=== PATIENT | male | born 1950 | race Caucasian/White ===

== ENCOUNTER 2017-08-31 01:36 | Emergency (ER) | payer OTHER ==
[~2017-08-31] VITALS: Ht 170.2 cm; Wt 79.4 kg
[~2017-08-31 01:36] MED LIST: ALBU18 IN; AMLO5TAB2 PO; ASPI-266 PO; ATO40T PO; CLOP75TA28 PO; HYDR12.56 PO; MISC450C PO; MULTCAP45 PO
[2017-08-31 02:25] LABS: Basophils # (auto) 0 uL; Eosinophils # (auto) 0.1 uL; Hemoglobin 14.4 g/dL (13.5-17.5); Lymphocytes # (auto) 1.4 uL; Monocytes # (auto) 0.3 uL; Neutrophils # (auto) 3.3 uL; Nucleated Red Blood Cells % 0.1 %; Red Cell Distribution Width 14.1 % (11.8-14.3); White Blood Cell 5.1 10^3/uL (4.4-10.8)
[2017-08-31 02:27] LABS: Basophils % (auto) 0.8 % (0.0-2.0); Eosinophils % (auto) 2.2 % (0.0-7.0); Hematocrit 41.7 % (41.0-53.0); Lymphocytes % (auto) 27.6 % (10.0-50.0); Mean Corpuscular Hemoglobin 34.9 pg (28.0-32.0); Mean Corpuscular Hgb Conc. 34.6 g/dL (32.0-36.0); Mean Platelet Volume 6.8 fL (6.9-10.8); Monocytes % (auto) 5.6 % (0.0-12.0); Neutrophils % (auto) 63.8 % (37.0-80.0); Platelet Count (auto) 156 10^3/uL (140-450)
[2017-08-31 02:43] LABS: Albumin 3.8 g/dL (3.4-5.0); Anion Gap 10 (5-15); Aspartate Aminotransferase 58 U/L (15-37); BUN/Creatinine Ratio 9.9; Blood Urea Nitrogen 7 mg/dL (7-18); Calcium 7.8 mg/dL (8.5-10.1); Carbon Dioxide 24 mmol/L (21-32); Chloride 110 mmol/L (98-107); GFR African American 143 mL/min; GFR Non-African American 118 mL/min; Glucose 91 mg/dL (74-106); Magnesium 2.3 mg/dL (1.6-2.6); Potassium 3.7 mmol/L (3.5-5.1); Sodium 144 mmol/L (136-145)
[2017-08-31 02:52] LABS: Alkaline Phosphatase 70 U/L (45-117); Bilirubin, Total 0.2 mg/dL (0.2-1.0); Total Protein 7.9 g/dL (6.4-8.2)
[2017-08-31] MEDS ORDERED: SODIUM CHLORIDE 0.9% 1,000 ML IV ONE ×2 (07:18)
[2017-08-31] MEDS ORDERED: ASPirin 325 MG TAB PO ONE (07:30)
[2017-08-31] MEDS ORDERED: NITROGLYCERIN 0.4 MG SL TAB SL ONE (07:30)
[2017-08-31] MEDS ORDERED: THIAMINE HCL 100 MG/ML 2ML VIAL IV ONE (07:45)
[2017-08-31] MEDS ORDERED: chlorproMAZINE HCL 25 MG TAB PO ONE (09:15)
[2017-08-31 12:04] VITALS: BP 183/109
[2017-08-31] MEDS ORDERED: cloNIDine HCL 0.1 MG TAB PO ONE (12:15)
== END 2017-08-31 12:32 | disposition home or self-care (01) ==
LOC: EDBD 01:36 → ER 01:39
DX: R07.89 Other chest pain (principal); F10.10 Alcohol abuse, uncomplicated; I48.91 Unspecified atrial fibrillation; J44.9 Chronic obstructive pulmonary disease, unspecified; E78.5 Hyperlipidemia, unspecified; I10 Essential (primary) hypertension; I25.10 Atherosclerotic heart disease of native coronary artery without angina pectoris; I25.2 Old myocardial infarction; Z95.1 Presence of aortocoronary bypass graft; Z79.82 Long term (current) use of aspirin
CPT/HCPCS: 36415; 71010; 80053; 80320; 83735; 84484; 85025; 93005; 96361; 96374; 99285; J3411; J7030; Q0161

== ENCOUNTER 2018-06-18 23:43 | Emergency (ER) | payer OTHER ==
[~2018-06-18] VITALS: Ht 175.3 cm; Wt 84.8 kg
[2018-06-19 01:14] LABS: Basophils # (auto) 0 uL; Basophils % (auto) 0.8 % (0.0-2.0); Eosinophils # (auto) 0.3 uL; Eosinophils % (auto) 6.4 % (0.0-7.0); Hematocrit 41.7 % (41.0-53.0); Hemoglobin 14.2 g/dL (13.5-17.5); Lymphocytes # (auto) 1.7 uL; Lymphocytes % (auto) 31.2 % (10.0-50.0); Mean Corpuscular Hgb Conc. 33.9 g/dL (32.0-36.0); Mean Corpuscular Volume 100.3 fL (80.0-100.0); Monocytes # (auto) 0.5 uL; Monocytes % (auto) 9.8 % (0.0-12.0); Neutrophils # (auto) 2.8 uL; Neutrophils % (auto) 51.8 % (37.0-80.0); Platelet Count (auto) 228 10^3/uL (140-450); Red Blood Cells 4.16 10^6/uL (4.5-5.90); Red Cell Distribution Width 13.9 % (11.8-14.3); White Blood Cell 5.4 10^3/uL (4.4-10.8)
[2018-06-19 01:32] LABS: Alanine Aminotransferase 63 U/L (16-61); Albumin 3.5 g/dL (3.4-5.0); Anion Gap 15 (5-15); Aspartate Aminotransferase 63 U/L (15-37); BUN/Creatinine Ratio 10.9; Blood Urea Nitrogen 14 mg/dL (7-18); Calcium 8.8 mg/dL (8.5-10.1); Carbon Dioxide 20 mmol/L (21-32); Chloride 107 mmol/L (98-107); GFR African American 72 mL/min; GFR Non-African American 60 mL/min; Glucose 119 mg/dL (74-106); Magnesium 2.1 mg/dL (1.6-2.6); Potassium 3.7 mmol/L (3.5-5.1); Sodium 142 mmol/L (136-145)
[2018-06-19 01:35] LABS: Alkaline Phosphatase 109 U/L (45-117); Bilirubin, Total 0.3 mg/dL (0.2-1.0); Total Protein 7.3 g/dL (6.4-8.2)
[2018-06-19 01:53] LABS: INR 0.9 (0.9-1.15); Partial Thromboplastin Time 27.5 sec (23.78-33.04); Prothrombin Time 9.7 sec (9.27-12.13)
[2018-06-19 10:28] VITALS: BP 148/73
[2018-06-19] MEDS ORDERED: ACETAMINOPHEN 325 MG TAB PO ONE (10:30)
== END 2018-06-19 10:10 | disposition home or self-care (01) ==
LOC: ER 23:47
DX: R07.89 Other chest pain (principal); L03.811 Cellulitis of head [any part, except face]; I48.91 Unspecified atrial fibrillation; J44.9 Chronic obstructive pulmonary disease, unspecified; E78.5 Hyperlipidemia, unspecified; I25.810 Atherosclerosis of coronary artery bypass graft(s) without angina pectoris; I10 Essential (primary) hypertension; I25.2 Old myocardial infarction; Z95.1 Presence of aortocoronary bypass graft; Z88.5 Allergy status to narcotic agent; Z87.891 Personal history of nicotine dependence
CPT/HCPCS: 36415; 70450; 71046; 80053; 83735; 83880; 84484; 85025; 85610; 85730; 93005

== ENCOUNTER 2018-10-10 18:48 | Emergency (ER) | payer OTHER ==
[~2018-10-10] VITALS: Ht 175.3 cm; Wt 83.9 kg
[2018-10-10 19:28] LABS: Basophils # (auto) 0 uL; Basophils % (auto) 0.7 % (0.0-2.0); Eosinophils # (auto) 0.1 uL; Eosinophils % (auto) 2.5 % (0.0-7.0); Hematocrit 41.5 % (41.0-53.0); Hemoglobin 14.3 g/dL (13.5-17.5); Lymphocytes # (auto) 1.3 uL; Lymphocytes % (auto) 23.3 % (10.0-50.0); Mean Corpuscular Hemoglobin 34.4 pg (28.0-32.0); Mean Corpuscular Hgb Conc. 34.6 g/dL (32.0-36.0); Mean Corpuscular Volume 99.5 fL (80.0-100.0); Monocytes # (auto) 0.4 uL; Monocytes % (auto) 6.4 % (0.0-12.0); Neutrophils # (auto) 3.8 uL; Neutrophils % (auto) 67.1 % (37.0-80.0); Platelet Count (auto) 224 10^3/uL (140-450); Red Blood Cells 4.17 10^6/uL (4.5-5.90); Red Cell Distribution Width 13.1 % (11.8-14.3); White Blood Cell 5.7 10^3/uL (4.4-10.8)
[2018-10-10 19:51] LABS: Alanine Aminotransferase 29 U/L (16-61); Albumin 3.1 g/dL (3.4-5.0); Anion Gap 10 (5-15); Blood Urea Nitrogen 21 mg/dL (7-18); Calcium 7.7 mg/dL (8.5-10.1); Carbon Dioxide 23 mmol/L (21-32); Chloride 103 mmol/L (98-107); Glucose 110 mg/dL (74-106); Sodium 136 mmol/L (136-145)
[2018-10-10 19:56] LABS: Alkaline Phosphatase 96 U/L (45-117); Aspartate Aminotransferase 20 U/L (15-37); BUN/Creatinine Ratio 18.9; Bilirubin, Total 0.5 mg/dL (0.2-1.0); GFR African American > 60 mL/min; GFR Non-African American > 60 mL/min; Total Protein 6.7 g/dL (6.4-8.2)
[2018-10-10 20:00] LABS: Potassium 2.6 mmol/L (3.5-5.1)
[2018-10-10] MEDS ORDERED: POTASSIUM CHL 20MEQ/100ML 100 ML IV ONE (20:15)
[2018-10-10] MEDS ORDERED: POTASSIUM CHL 20 Meq TABLET PO ONE (20:15)
[2018-10-10 20:22] LABS: Urine Bacteria NONE SEEN /hpf (None Seen); Urine Blood Negative /uL (Negative); Urine Hyaline Cast FEW /lpf (0 - 2); Urine Specific Gravity 1.013 (1.001-1.035); Urine WBC 1 /hpf (0 - 3)
[2018-10-10 20:35] LABS: INR 0.99 (0.9-1.15); Partial Thromboplastin Time 31.4 sec (23.78-33.04); Prothrombin Time 10.6 sec (9.27-12.13)
[2018-10-10] MEDS ORDERED: HYDROmorphone HCL 2 MG/ML VL IV ONE (21:00)
[2018-10-10] MEDS ORDERED: ONDANSETRON HCL 4 MG/2 ML VIAL IV ONE (21:00)
[2018-10-10] MEDS ORDERED: cefTRIAXone 1GM/50ML D5W 50 ML IV ONE (23:30)
[2018-10-11] MEDS ORDERED: VANCOMYCIN 1GM/250ML 250 ML IV ONE (02:00)
[2018-10-11] MEDS ORDERED: HYDROcodone-ACET 10/325MG TAB PO ONE (02:00)
[2018-10-11 05:24] VITALS: BP 126/79
== END 2018-10-11 05:50 | disposition home or self-care (01) ==
LOC: EDUNIT# 18:48 → ER 18:48 → EDBD 18:48 → ER 10-11 05:50
DX: R07.9 Chest pain, unspecified (principal); L03.211 Cellulitis of face; E87.6 Hypokalemia; R73.9 Hyperglycemia, unspecified; I48.91 Unspecified atrial fibrillation; J44.9 Chronic obstructive pulmonary disease, unspecified; E78.5 Hyperlipidemia, unspecified; I10 Essential (primary) hypertension; I25.2 Old myocardial infarction; Z95.1 Presence of aortocoronary bypass graft; Z87.891 Personal history of nicotine dependence; Z98.61 Coronary angioplasty status; Z88.6 Allergy status to analgesic agent
CPT/HCPCS: 36415; 70486; 71045; 80053; 81001; 83880; 84443; 84484; 85025; 85610; 85730; 94761; 96365; 96366; 96367; 96375; 99284; J0696; J1170; J2405; J3370; J3480; J7030

== ENCOUNTER 2019-03-28 16:06 | Emergency (ER) | payer OTHER ==
[~2019-03-28] VITALS: Ht 170.2 cm; Wt 81.6 kg
[2019-03-28] MEDS ORDERED: SODIUM CHLORIDE 0.9% 1,000 ML IV ONE (16:45)
[2019-03-28 18:38] LABS: Basophils # (auto) 0 uL; Basophils % (auto) 0.5 % (0.0-2.0); Eosinophils # (auto) 0.2 uL; Eosinophils % (auto) 3.6 % (0.0-7.0); Hematocrit 42.9 % (41.0-53.0); Hemoglobin 14.2 g/dL (13.5-17.5); Lymphocytes # (auto) 1.8 uL; Lymphocytes % (auto) 39.5 % (10.0-50.0); Mean Corpuscular Hemoglobin 33.3 pg (28.0-32.0); Mean Corpuscular Hgb Conc. 33.1 g/dL (32.0-36.0); Mean Corpuscular Volume 100.4 fL (80.0-100.0); Monocytes # (auto) 0.4 uL; Neutrophils # (auto) 2.2 uL; Neutrophils % (auto) 48.4 % (37.0-80.0); Platelet Count (auto) 175 10^3/uL (140-450); Red Blood Cells 4.27 10^6/uL (4.5-5.90); Red Cell Distribution Width 13.8 % (11.8-14.3); White Blood Cell 4.4 10^3/uL (4.4-10.8)
[2019-03-28 18:48] LABS: Albumin 3.2 g/dL (3.4-5.0); Calcium 7.8 mg/dL (8.5-10.1); Potassium 4.1 mmol/L (3.5-5.1)
[2019-03-28 18:52] LABS: BUN/Creatinine Ratio 16.5; Bilirubin, Total 0.2 mg/dL (0.2-1.0); Total Protein 6.4 g/dL (6.4-8.2)
[2019-03-28 20:05] VITALS: BP 121/72
[2019-03-28 22:24] LABS: Urine Bacteria NONE SEEN /hpf (None Seen); Urine Blood Negative /uL (Negative); Urine Specific Gravity 1.004 (1.001-1.035); Urine WBC <1 /hpf (0 - 3)
[2019-03-31] MEDS ORDERED: TAMS0.4C36 PO (18:18)
[2019-03-31] MEDS ORDERED: AMLO5TAB13 PO (18:18)
[2019-03-31] MEDS ORDERED: ATOR40TA52 PO (18:18)
[2019-03-31] MEDS ORDERED: CALC0.5C PO (18:18)
[2019-03-31] MEDS ORDERED: HCTZ25T PO (18:18)
[2019-03-31] MEDS ORDERED: METO-169 PO (18:18)
[2019-03-31] MEDS ORDERED: DIPH-506 OR (18:18)
[2019-03-31] MEDS ORDERED: AMIO200T33 PO (18:18)
[2019-03-31] MEDS ORDERED: CLOP75TA28 PO (18:18)
[2019-03-31] MEDS ORDERED: OMEP20TA PO (18:18)
== END 2019-03-28 20:26 | disposition home or self-care (01) ==
LOC: EDBD 16:06 → ER 16:06
DX: F10.229 Alcohol dependence with intoxication, unspecified (principal); I48.91 Unspecified atrial fibrillation; J44.9 Chronic obstructive pulmonary disease, unspecified; E78.5 Hyperlipidemia, unspecified; I10 Essential (primary) hypertension; I25.2 Old myocardial infarction; F12.90 Cannabis use, unspecified, uncomplicated; Z88.5 Allergy status to narcotic agent; Z95.1 Presence of aortocoronary bypass graft; Z98.61 Coronary angioplasty status; Z87.891 Personal history of nicotine dependence
CPT/HCPCS: 36415; 80053; 80320; 81001; 85025; 93005; 96360; 99284; J7030

== ENCOUNTER 2019-05-07 15:57 | Emergency (ER) | payer OTHER ==
[~2019-05-07] VITALS: Ht 172.7 cm; Wt 81.6 kg
[~2019-05-07 15:57] MED LIST changes: -ALBU18 IN; +AMIO200T33 PO; -AMLO5TAB2 PO; +APIX5TAB OR; -ATO40T PO; +ATOR40TA52 PO; +CALC0.5C PO; +CAR3125T OR; +FOLI1TAB6 PO; -HYDR12.56 PO; -MISC450C PO; -MULTCAP45 PO; +OMEP20TA PO; +TAMS0.4C36 PO; +THIA100T10 PO
[2019-05-07 16:39] LABS: Basophils # (auto) 0.1 uL; Basophils % (auto) 0.8 % (0.0-2.0); Eosinophils # (auto) 0 uL; Eosinophils % (auto) 0.1 % (0.0-7.0); Hematocrit 45.5 % (41.0-53.0); Hemoglobin 15.8 g/dL (13.5-17.5); Lymphocytes # (auto) 0.7 uL; Lymphocytes % (auto) 10.1 % (10.0-50.0); Mean Corpuscular Hemoglobin 33.8 pg (28.0-32.0); Mean Corpuscular Hgb Conc. 34.7 g/dL (32.0-36.0); Mean Corpuscular Volume 97.4 fL (80.0-100.0); Monocytes # (auto) 0.4 uL; Neutrophils # (auto) 5.8 uL; Nucleated Red Blood Cells % 0.1 %; Platelet Count (auto) 185 10^3/uL (140-450); Red Blood Cells 4.67 10^6/uL (4.5-5.90); Red Cell Distribution Width 13.8 % (11.8-14.3)
[2019-05-07] MEDS ORDERED: SODIUM CHLORIDE 0.9% 1,000 ML IV ONE (16:39)
[2019-05-07] MEDS ORDERED: LORazepam 2MG/ML-1ML VIAL IV ONE (16:45)
[2019-05-07 17:11] LABS: Alanine Aminotransferase 59 U/L (16-61); Albumin 4.4 g/dL (3.4-5.0); Anion Gap 17 (5-15); Aspartate Aminotransferase 65 U/L (15-37); BUN/Creatinine Ratio 8.6; Blood Urea Nitrogen 8 mg/dL (7-18); Calcium 8.8 mg/dL (8.5-10.1); Carbon Dioxide 21 mmol/L (21-32); Chloride 102 mmol/L (98-107); GFR African American 104 mL/min; GFR Non-African American 86 mL/min; Glucose 142 mg/dL (74-106); Magnesium 1.7 mg/dL (1.6-2.6); Potassium 3.6 mmol/L (3.5-5.1); Sodium 140 mmol/L (136-145)
[2019-05-07 17:21] LABS: Alkaline Phosphatase 87 U/L (45-117); Total Protein 8.6 g/dL (6.4-8.2)
[2019-05-07 18:25] LABS: Alcohol, Urine < 3.0 mg/dL (0-5); Amphetamine Screen, Urine NEGATIVE (NEGATIVE); Barbiturate Scree,Urine NEGATIVE (NEGATIVE); Benzodiazephine Screen, Urine NEGATIVE (NEGATIVE); Cannabinoid Screen, Urine POSITIVE (NEGATIVE); Cocaine Screen, Urine NEGATIVE (NEGATIVE); Opiate Scree,Urine NEGATIVE (NEGATIVE); Phencyclidine Screen, Urine NEGATIVE (NEGATIVE)
[2019-05-07] MEDS ORDERED: ASPirin 81 mg TAB PO ONE (19:15)
[2019-05-07] MEDS ORDERED: CLOPIDOGREL BISULFATE 75 MG TAB PO ONE (19:15)
[2019-05-07 20:00] VITALS: BP 160/84
== END 2019-05-07 20:40 | disposition home or self-care (01) ==
LOC: ER 16:01
DX: R07.9 Chest pain, unspecified (principal); R11.2 Nausea with vomiting, unspecified; I48.91 Unspecified atrial fibrillation; J44.9 Chronic obstructive pulmonary disease, unspecified; I25.810 Atherosclerosis of coronary artery bypass graft(s) without angina pectoris; E78.5 Hyperlipidemia, unspecified; I10 Essential (primary) hypertension; I25.2 Old myocardial infarction; F31.9 Bipolar disorder, unspecified; Z98.61 Coronary angioplasty status; F10.20 Alcohol dependence, uncomplicated; Y90.0 Blood alcohol level of less than 20 mg/100 ml; F12.10 Cannabis abuse, uncomplicated; Z79.899 Other long term (current) drug therapy; Z79.82 Long term (current) use of aspirin; Z88.5 Allergy status to narcotic agent
CPT/HCPCS: 36415; 71045; 80053; 80307; 80320; 83735; 83880; 84484; 85025; 93005; 94761; 96361; 96374; 99284; J2060; J7030

== ENCOUNTER 2019-05-22 09:26 | Emergency (ER) | payer OTHER ==
[~2019-05-22] VITALS: Ht 170.2 cm; Wt 86.2 kg
[2019-05-22 10:29] LABS: Basophils # (auto) 0.1 uL; Eosinophils # (auto) 0.1 uL; Lymphocytes # (auto) 1.6 uL; Monocytes # (auto) 0.4 uL; Neutrophils # (auto) 3.3 uL; Neutrophils % (auto) 60.2 % (37.0-80.0); Platelet Count (auto) 124 10^3/uL (140-450)
[2019-05-22 10:30] LABS: Basophils % (auto) 1.2 % (0.0-2.0); Eosinophils % (auto) 1.5 % (0.0-7.0); Hematocrit 40.7 % (41.0-53.0); Hemoglobin 13.8 g/dL (13.5-17.5); Lymphocytes % (auto) 29.4 % (10.0-50.0); Mean Corpuscular Hgb Conc. 33.9 g/dL (32.0-36.0); Mean Corpuscular Volume 100.1 fL (80.0-100.0); Monocytes % (auto) 7.7 % (0.0-12.0); Red Blood Cells 4.07 10^6/uL (4.5-5.90); Red Cell Distribution Width 14.7 % (11.8-14.3); White Blood Cell 5.6 10^3/uL (4.4-10.8)
[2019-05-22 10:43] LABS: Albumin 4.1 g/dL (3.4-5.0); Anion Gap 14 (5-15); BUN/Creatinine Ratio 12.3; Blood Urea Nitrogen 8 mg/dL (7-18); Calcium 8.2 mg/dL (8.5-10.1); Carbon Dioxide 18 mmol/L (21-32); Chloride 110 mmol/L (98-107); GFR African American 158 mL/min; GFR Non-African American 130 mL/min; Glucose 91 mg/dL (74-106); Magnesium 2.1 mg/dL (1.6-2.6); Potassium 3.5 mmol/L (3.5-5.1); Sodium 142 mmol/L (136-145)
[2019-05-22] MEDS ORDERED: PROCHLORPERAZINE EDISYLATE 5 MG/ML 2ML VIAL IV ONE (10:45)
[2019-05-22 10:49] LABS: Alanine Aminotransferase 58 U/L (16-61); Alkaline Phosphatase 99 U/L (45-117); Aspartate Aminotransferase 87 U/L (15-37); Bilirubin, Total 0.6 mg/dL (0.2-1.0); Total Protein 8.2 g/dL (6.4-8.2)
[2019-05-22] MEDS ORDERED: SODIUM CHLORIDE 0.9% 1,000 ML IV ONE (11:17)
[2019-05-22 11:21] LABS: INR < 0.93 (0.9-1.15); Partial Thromboplastin Time 28.8 sec (23.64-32.05)
[2019-05-22] MEDS ORDERED: IOHEXOL 300 MG/ML 100ML BOTTLE IJ ONE (11:37)
[2019-05-22] MEDS: chlorproMAZINE INECTION 25 MG in SODIUM CHL 0.9% 50 ML IV SCH ×2 (14:50→18:00)
[2019-05-22 18:46] VITALS: BP 147/83
== END 2019-05-22 18:10 | disposition home or self-care (01) ==
LOC: EDBD 09:26 → ER 09:29
DX: S30.1XXA Contusion of abdominal wall, initial encounter (principal); R06.6 Hiccough; I10 Essential (primary) hypertension; R05 Cough; I48.91 Unspecified atrial fibrillation; I25.810 Atherosclerosis of coronary artery bypass graft(s) without angina pectoris; J44.9 Chronic obstructive pulmonary disease, unspecified; K21.9 Gastro-esophageal reflux disease without esophagitis; E78.5 Hyperlipidemia, unspecified; I11.0 Hypertensive heart disease with heart failure; I50.9 Heart failure, unspecified; I25.2 Old myocardial infarction; E07.9 Disorder of thyroid, unspecified; F12.90 Cannabis use, unspecified, uncomplicated; Z95.1 Presence of aortocoronary bypass graft; Z98.61 Coronary angioplasty status; X58.XXXA Exposure to other specified factors, initial encounter; Y93.89 Activity, other specified; Y99.8 Other external cause status; Y92.89 Other specified places as the place of occurrence of the external cause
CPT/HCPCS: 36415; 71045; 74177; 78582; 80053; 83690; 83735; 84484; 85025; 85379; 85610; 85730; 93005; 94761; 96374; 99284; A9540; A9558; J0780; J3230; J7030; Q9967